=== PATIENT | female | born 2000 ===

== ENCOUNTER 2022-01-31 21:21 | Outpatient (CLI) | payer MEDICAID ==
[2022-01-31 22:29] VITALS: BP 105/54
[2022-01-31] MEDS ORDERED: LACTATED RINGERS 500 ML IV ONE (22:56)
[2022-01-31 23:55] LABS: Bacteria,Urine 2+ /HPF (Negative); Bilirubin,Urine NEG (Negative); Blood,Urine NEG (Negative); Color,Urine Yellow (Yellow); Mucus,Urine 3+ /HPF; Protein,Urine <15 mg/dL mg/dL (Negative); Urobilinogen,Urine < 2.0 mg/dL (<2.0)
== END 2022-01-31 23:42 | disposition home or self-care (01) ==
LOC: TRG 21:21 → APU 21:24 → TRG 23:42
PROVIDERS: ATTEND Obstetrics & Gynecology Gynecology
DX: O26.892 Other specified pregnancy related conditions, second trimester (principal); R20.0 Anesthesia of skin; Z3A.26 26 weeks gestation of pregnancy
CPT/HCPCS: 81001

== ENCOUNTER 2022-01-31 23:54 | Emergency (ER) | payer MEDICAID | END 2022-02-01 04:00 | disposition left against medical advice (07) | LOC: ED 23:54 | DX: R07.9 Chest pain, unspecified (principal); Z53.21 Procedure and treatment not carried out due to patient leaving prior to being seen by health care provider ==